=== PATIENT | female | born 1985 | race Two or more races ===

== ENCOUNTER 2017-03-19 08:15 | Emergency (ER) | payer OTHER ==
--- NOTE | ~2017-03-19 | US85 ---
[facility] A Service of [facility] RADIOLOGY TEXT RESULTS PATIENT: JOSE M MADSEN LOCATION: [place] : [birth year] UNIT #: [id number] AGE: [address]: Chiqui Agarwal SEX: F ORDER DR: [id number] [id number] [facility] [place] [facility]. [place], [place] [address] [id number] E MR#: [id number] Acc #: [id number] NAME: JOSE M MADSEN : 1985 SEX: F STUDY DATE/TIME: 03/19/2017 9:25 UNIT: [place] ROOM: STUDY DESCRIPTION: [facility] or [facility] St[facility] Attending Physician: Chiqui Agarwal Pa-C Ordering Physician: Chiqui Agarwal Pa-C Primary Care Physician: [facility], MEDICAL IMAGING REPORT This report is preliminary unless electronic signature is present EXAM Right lower extremity venous Doppler INDICATION Right leg pain for a few months. This has been worsening over the past few days. TECHNIQUE Gaffney-scale, color Doppler, and spectral Doppler waveform analysis was performed through the patient's right lower extremity. TECHNIQUE Venous ultrasound examination of the right lower extremity was performed using grayscale, spectral Doppler and color flow Doppler imaging. FINDINGS The examination is negative. There is no evidence of right lower extremity deep venous thrombus from the groin to the lower calf. Visualized greater saphenous vein is also patent. IMPRESSION Negative. Dictated by... Jessica Al M.D. THIS IS AN ELECTRONICALLY VERIFIED REPORT Jessica Al M.D. at 03/19/2017 5:22 PM AFF/aa TD: 03/19/2017 12:04 JOB #: [id number] [facility] A Service of [facility] RADIOLOGY TEXT RESULTS PATIENT: JOSE M MADSEN LOCATION: [place] : 81 UNIT #: [id number] AGE: [address]: Chiqui Agarwal SEX: F ORDER DR: MEDICAL IMAGING REPORT Page 1 of 1 COPY
[2017-03-19 09:17] LABS: URINE SOURCE CLEAN CATCH
[2017-03-19 09:23] LABS: BASOPHIL# 0.1 X10e3 (0-0.3); BASOPHIL% 0.6 % (0-2.5); EOSINOPHIL% 0.1 % (0.0-7.0); HEMATOCRIT 39.7 % (35.0-45.0); HEMOGLOBIN 13.1 gm/dL (12.0-16.0); LYMPHOCYTE% 20.6 % (17.0-45.0); MEAN CELL VOLUME 87.6 FL (83-96); MEAN CORPUSCULAR HEMOGLOBIN 28.9 PG (28-34); MEAN PLATELET VOLUME 7.5 FL (6.5-11.5); MONOCYTE# 0.4 X10e3 (0-1.0); MONOCYTE% 4.7 % (3.0-12.0); PLATELET COUNT 323 X10e3 (140-420); RED BLOOD COUNT 4.54 X10e (3.90-5.30); RED CELL DISTRIBUTION WIDTH 13.3 % (11.0-15.5); WHITE BLOOD COUNT 9.5 X10e3 (4.0-10.5)
[2017-03-19 09:24] LABS: URINE APPEARANCE CLEAR; URINE BILIRUBIN NEG (NEG); URINE BLOOD NEG (NEG); URINE COLOR YELLOW; URINE GLUCOSE NEG (NEG); URINE KETONE TRACE (NEG); URINE LEUKOCYTE ESTERASE 2+ (NEG); URINE NITRATE NEG (NEG); URINE PROTEIN NEG (NEG); URINE SPECIFIC GRAVITY 1.022 (1.003-1.035)
[2017-03-19 09:24] LABS: DIFF IND NO
[2017-03-19 09:26] LABS: CULTURE INDICATED? YES; URINE BACTERIA AUWI 2+ (NEGATIVE); URINE SQUAMOUS EPITHELIAL CELL OCC /[HPF]
[2017-03-19 09:47] LABS: ALBUMIN SERUM 4.1 g/dL (3.5-5.0); BILIRUBIN, DIRECT 0.2 mg/dL (0.0-0.2); BILIRUBIN,INDIRECT 0.5 mg/dL (0.0-0.9); BILIRUBIN,TOTAL 0.7 mg/dL (0.2-2.0); CALCIUM SERUM 8.8 mg/dL (8.4-10.2); CREATININE SERUM 0.8 mg/dL (0.6-1.4); POTASSIUM 3.9 mmol/L (3.5-5.1); PROTEIN TOTAL SERUM 7.8 g/dL (6.0-8.3)
== END 2017-03-19 10:26 | disposition home or self-care (01) ==
LOC: CED 08:15
PROVIDERS: Physician Assistant Medical
DX: R55 Syncope and collapse (principal); Z91.041 Radiographic dye allergy status
CPT/HCPCS: 80048; 80076; 81003; 84703; 85025; 87086; 93971; 99284

== ENCOUNTER 2017-04-13 14:45 | Emergency (ER) | payer OTHER ==
--- NOTE | ~2017-04-13 | EKG ---
PATIENT: JOSE M MADSEN UNIT #: [id number] Ventricular Rate: 65 BPM Atrial Rate: 65 BPM P-R Interval: 150 ms QRS Duration: 80 ms Q-T Interval: 402 ms QTC Calculation(Bezet): 418 ms P [place]: 45 degrees Calculated R [place]: 57 degrees Calculated T [place]: 44 degrees Diagnosis Line: Normal sinus rhythm Diagnosis Line: Normal ECG Diagnosis Line: No previous ECGs available Diagnosis Line: Confirmed by PATRIC SPRING MD ([id number]) on Diagnosis Line: 04/13/2017 10:21:53 PM INTERPRETING MD: LITO
--- NOTE | ~2017-04-13 | CT72 ---
[facility] A Service of [facility] RADIOLOGY TEXT RESULTS PATIENT: JOSE M MADSEN LOCATION: [facility] : [birth year] UNIT #: [id number] AGE: [address]: Vibha Jim MD SEX: F ORDER DR: [id number] [facility] [address] [place], [place] [address] [id number] E MR#: [id number] Acc #: [id number] NAME: JOSE M MADSEN : 1985 SEX: F STUDY DATE/TIME: 04/13/2017 15:06 UNIT: [facility] ROOM: STUDY DESCRIPTION: CT Head Wo Contrast Stroke Attending Physician: Vibha Jim M.D. Ordering Physician: Kemi Sadler M.D. [facility] REPORT This report is preliminary unless electronic signature is present EXAM CT brain without contrast HISTORY Left side weakness for 1 hour. TECHNIQUE Axial noncontrast images were obtained from the skull base to the vertex. This CT exam was performed with one or more of the following radiation dose reduction techniques: Automatic exposure control, adjustment of mA and/or kV according to patient size, and iterative reconstruction. FINDINGS Ventricular size and configuration are normal. There is no evidence of acute infarct or hemorrhage. There are no extraaxial fluid collections. No mass lesion or mass effect is seen. There are no skull fractures. IMPRESSION Normal noncontrast head CT. Dictated by... Ruddy Harvey M.D. THIS IS AN ELECTRONICALLY VERIFIED REPORT Ruddy Harvey M.D. at 04/14/2017 3:01 PM DFL/rocío TD: 04/14/2017 00:11 JOB #: [id number] MEDICAL IMAGING REPORT Page 1 of 1 COPY
[2017-04-13 15:40] LABS: BASOPHIL% 0.9 % (0-2.5); EOSINOPHIL% 0.8 % (0.0-7.0); LYMPHOCYTE# 2.1 X10e3 (1.0-3.5); LYMPHOCYTE% 45.3 % (17.0-45.0); MEAN CELL VOLUME 86.5 FL (83-96); MEAN CORPUSCULAR HEMOGLOBIN 28.9 PG (28-34); MEAN CORPUSCULAR HGB CONC 33.5 g/dL (30-36); MEAN PLATELET VOLUME 7.4 FL (6.5-11.5); MONOCYTE# 0.4 X10e3 (0-1.0); MONOCYTE% 9.3 % (3.0-12.0); NEUTROPHIL% 43.7 % (40-75); PLATELET COUNT 273 X10e3 (140-420); RED BLOOD COUNT 4.86 X10e (3.90-5.30); RED CELL DISTRIBUTION WIDTH 12.9 % (11.0-15.5); WHITE BLOOD COUNT 4.7 X10e3 (4.0-10.5)
[2017-04-13 15:42] LABS: DIFF IND NO
[2017-04-13 15:51] LABS: PARTIAL THROMBOPLASTIN TIME 29.3 SECONDS (23.5-31.3); PROTHROMBIN TIME (PATIENT) 10.4 SECONDS (9.6-11.5)
[2017-04-13 16:02] LABS: ALBUMIN SERUM 4.3 g/dL (3.5-5.0); BILIRUBIN, DIRECT 0.1 mg/dL (0.0-0.2); BILIRUBIN,INDIRECT 1.4 mg/dL (0.0-0.9); BILIRUBIN,TOTAL 1.5 mg/dL (0.2-2.0); CALCIUM SERUM 8.6 mg/dL (8.4-10.2); CREATININE SERUM 0.8 mg/dL (0.6-1.4); POTASSIUM 3.7 mmol/L (3.5-5.1); PROTEIN TOTAL SERUM 7.8 g/dL (6.0-8.3)
[2017-04-13 16:24] LABS: URINE SOURCE CLEAN CATCH
[2017-04-13 16:34] LABS: URINE APPEARANCE CLEAR; URINE BILIRUBIN NEG (NEG); URINE BLOOD TRACE (NEG); URINE COLOR YELLOW; URINE GLUCOSE NEG (NEG); URINE KETONE 1+ (NEG); URINE LEUKOCYTE ESTERASE 1+ (NEG); URINE NITRATE NEG (NEG); URINE PH 5.5 (5-8); URINE PROTEIN NEG (NEG); URINE SPECIFIC GRAVITY 1.026 (1.003-1.035)
[2017-04-13 16:38] LABS: CULTURE INDICATED? YES; URINE BACTERIA AUWI 1+ (NEGATIVE); URINE SQUAMOUS EPITHELIAL CELL OCC /[HPF]
[2017-04-13 16:44] LABS: AMPHETAMINE NEG (NEG); BARBITURATES NEG (NEG); BENZODIAZEPINES NEG (NEG); COCAINE NEG (NEG); MARIJUANA NEG (NEG); OPIATES NEG (NEG); TRICYCLIC ANTIDEPRESSANTS NEG (NEG); U METHADONE NEG (NEG)
== END 2017-04-13 17:47 | disposition home or self-care (01) ==
LOC: CED 14:45
PROVIDERS: Student in an Organized Health Care Education/Training Program
DX: R51 Headache (principal); R56.9 Unspecified convulsions
CPT/HCPCS: 36415; 70450; 80048; 80076; 80307; 81003; 82947; 84703; 85025; 85610; 85730; 87086; 93005; 96361; 96374; 99284; J2060